=== PATIENT | male | born 2000 | race Caucasian/White ===

== ENCOUNTER 2018-12-22 18:14 | Emergency (ER) | payer OTHER ==
[2018-12-22 18:41] VITALS: BP 113/69
--- NOTE | 2018-12-22 22:26 | UC ---
Respiratory Complaint HPI - HPI Summary HPI Summary: 2-3 WEEKS OF HEAD PRESSURE, NASAL CONGESTION, PRESSURE BEHIND EYES AND IRRITATED /RED EYES. NO REAL COUGH. NO FEVER, NAUSEA/VOMITING. FEELS OCCASIONALLY SNEEZY. HAS A HISTORY OF ALLERGIES. HAS NOT BEEN TAKING HIS DAILY ALLERGY PILL. - History of Current Complaint Chief Complaint: UCRespiratory Stated Complaint: SINUS CONGESTION Time Seen by Provider: 12/22/18 18:54 Hx Obtained From: Patient Onset/Duration: Gradual Onset, Lasting Weeks, Still Present Timing: Constant Severity Initially: Moderate Severity Currently: Moderate Pain Intensity: 0 Pain Scale Used: 0-10 Numeric Aggravating Factors: Allergens Alleviating Factors: Nothing Associated Signs And Symptoms: Positive: Nasal Congestion. Negative: Dyspnea, Fever, Wheezing, URI - Allergies/Home Medications Allergies/Adverse Reactions: Allergies Allergy/AdvReac Type Severity Reaction Status Date / Time amoxicillin Allergy Hives Verified 12/22/18 18:41 Home Medications: Home Medications Clindamycin Phos/Benzoyl Perox [Benzaclin Gel] 25 gm TOPICAL BID 12/22/18 [ History Confirmed 12/22/18] PMH/Surg Hx/FS Hx/Imm Hx - Additional Past Medical History Additional PMH: ALLERGIES Respiratory History: Asthma - Surgical History Surgical History: None - Family History Known Family History: Positive: Non-Contributory - Social History Alcohol Use: None Substance Use Type: None Smoking Status (MU): Never Smoked Tobacco Review of Systems All Other Systems Reviewed And Are Negative: Yes Constitutional: Positive: Negative Eyes: Positive: Drainage, Eye Redness ENT: Positive: Ear Ache, Nasal Discharge, Sinus Congestion Respiratory: Positive: Negative Cardiovascular: Positive: Negative Gastrointestinal: Positive: Negative Physical Exam Triage Information Reviewed: Yes Appearance: Well-Appearing, No Pain Distress, Well-Nourished Vital Signs: Initial Vital Signs Temp 99.6 F 12/22/18 18:34 Pulse 81 12/22/18 18:34 Resp 18 12/22/18 18:34 BP 113/69 12/22/18 18:34 Pulse Ox 100 12/22/18 18:34 Eyes: Positive: Conjunctiva Inflamed, Discharge - MILDLY WATERY EYES ENT: Positive: Hearing grossly normal, Pharynx normal, Nasal congestion, TMs normal Neck: Positive: Supple, Nontender, No Lymphadenopathy Respiratory Exam: Normal Cardiovascular Exam: Normal Abdomen Description: Positive: Soft Musculoskeletal: Positive: No Edema Neurological: Positive: Alert Psychological: Positive: Age Appropriate Behavior Skin: Negative: Rashes Respiratory Course/Dx - Course Course Of Treatment: CLINICALLY PATIENT APPEARS TO BE MORE ALLERGENIC THAN INFECTIOUS. WE'LL TREAT WITH PREDNISONE, ALLERGY EYEDROPS, FLONASE AND HAVE ADVISED HIM TO RESUME HIS DAILY OTC ANTIHISTAMINE. SHOULD HIS SYMPTOMS NOT IMPROVE OVER THE NEXT FEW DAYS HE WILL CALL ME TO DISCUSS POSSIBLE ANTIBIOTIC OPTIONS. - Differential Dx/Diagnosis Provider Diagnosis: Allergic rhinitis Discharge - Sign-Out/Discharge Documenting (check all that apply): Patient Departure All imaging exams completed and their final reports reviewed: No Studies - Discharge Plan Condition: Stable Disposition: HOME Prescriptions: Albuterol HFA INHALER* [Ventolin HFA Inhaler*] 2 puff INH Q4H PRN #1 mdi PRN Reason: Shortness Of Breath Fluticasone NASAL SPRAY 50MCG* [Flonase NASAL SPRAY 50MCG*] 2 spray BOTH NARES DAILY #1 btl Olopatadine 0.1% OPHTH (NF) [Patanol 0.1% OPHTH (NF)] 1 drop BOTH EYES BID PRN # 1 btl PRN Reason: Allergy Symptoms predniSONE TAB* [Deltasone TAB*] 50 mg PO DAILY #5 tab Patient Education Materials: Allergic Rhinitis (ED) Referrals: [facility] Steve MEYERS [Provider Group] - If Needed Additional Instructions: YOUR SYMPTOMS ARE MORE IN LINE WITH ALLERGIES THAN WITH AN INFECTIOUS ETIOLOGY PRESENTLY. RESUME TAKING YOUR CLARITIN ONCE DAILY IN THE MORNING. WILL GIVE A SHORT BURST OF PREDNISONE ONCE DAILY WELL FLONASE NASAL SPRAY FOR YOU TO USE NIGHTLY BEFORE BED. ALLERGY EYE DROPS PROVIDED FOR YOU TO USE NEEDED WELL. ALBUTEROL REFILLED UPON REQUEST FOR YOUR EXERCISE-INDUCED ASTHMA SYMPTOMS. SHOULD THIS TREATMENT NOT BE EFFECTIVE OVER THE NEXT FEW DAYS YOU MAY CALL ME AT THE [facility] OFFICE THIS FRIDAY UNTIL 2 PM. CALL THE NUMBER BELOW FOR ASSISTANCE IN ESTABLISHING WITH A PCP An additional resource available to assist in finding the appropriate physician for your health care needs is [facility] ([facility]). You may contact them by calling [phone]. - Billing Disposition and Condition Condition: STABLE Disposition: Home
== END 2018-12-22 20:24 | disposition home or self-care (01) ==
LOC: UCEAST 18:14
DX: J30.9 Allergic rhinitis, unspecified (principal); J45.909 Unspecified asthma, uncomplicated; H57.89 Other specified disorders of eye and adnexa; Z88.0 Allergy status to penicillin
CPT/HCPCS: 99202; G0463